=== PATIENT | female | born 1935 | race Caucasian/White ===

== ENCOUNTER 2017-11-01 14:15 | Emergency (ER) | payer OTHER ==
[~2017-11-01] VITALS: Ht 165.1 cm; Wt 59.9 kg
[~2017-11-01 14:15] MED LIST: ASPI325 PO; ASPI81CH PO; ATEN50 PO; ATENOLOL PO; DIPATR PO; GABA300 PO; HYDACE10B PO; Keflex500 MG PO; LISI20 PO; LISINOPRIL PO; NIFE60ER PO; PRAV20 PO; PRAVASTATIN PO; PREG75 PO; Questran4 GM PO; VITAMIN B COMP PO; Zofran Odt4 MG SL; [UNRECOGNIZED DRUG - OTHER] PO
[2017-11-01 14:41] LABS: BASOPHILS ABSOLUTE AUTO 0.06 K/mm3 (0.00-0.23); BASOPHILS PERCENT AUTO 1 % (0-2); EOSINOPHILS ABSOLUTE AUTO 0.09 K/mm3 (0.00-0.68); EOSINOPHILS PERCENT AUTO 1 % (0-6); Hematocrit 39.1 % (33.0-51.0); Hemoglobin 13.5 g/dL (11.5-16.0); IMMATURE GRAN ABSOLUTE AUTO 0.03 K/mm3 (0.00-0.10); IMMATURE GRAN PERCENT AUTO 0 % (0-1); LYMPHOCYTES ABSOLUTE AUTO 1.54 K/mm3 (0.84-5.20); LYMPHOCYTES PERCENT AUTO 15 % (21-46); MONOCYTES ABSOLUTE AUTO 0.75 K/mm3 (0.16-1.47); MONOCYTES PERCENT AUTO 7 % (4-13); Mean Corpuscular HGB 32.9 pg (26.0-34.0); Mean Corpuscular HGB Conc 34.5 g/dL (31.5-36.5); Mean Corpuscular Volume 95 fL (80-100); NEUTROPHILS ABSOLUTE AUTO 7.81 K/mm3 (1.96-9.15); NEUTROPHILS PERCENT AUTO 76 % (41-73); Platelet Count 261 K/mm3 (150-400); RDW Coefficient Variation 13.4 % (11.7-14.2); RDW Standard Deviation 47.5 fL (35.1-46.3); White Blood Cell Count 10.28 K/mm3 (4.00-11.30)
[2017-11-01] MEDS ORDERED: BENZ100A (14:48)
[2017-11-01 15:12] LABS: Source, Urine Clean Catch
[2017-11-01 15:16] LABS: Alanine Aminotransfer (ALT/SGP 23 U/L (12-78); Albumin, Blood 3.4 g/dL (3.4-5.0); Albumin/Globulin Ratio 0.8 (0.8-1.8); Alk Phos 142 U/L (50-136); Anion Gap 8 mmol/L (6-16); Aspartate Aminotrans (AST/SGOT 18 U/L (12-37); Bilirubin, Total 0.7 mg/dL (0.1-1.0); Blood Urea Nitrogen 16 mg/dL (8-24); Bun/Creatinine Ratio 21.3 (12.0-20.0); CO2, Blood 22 mmol/L (21-32); Chloride, Blood 100 mmol/L (98-108); Creatinine, Blood 0.75 mg/dL (0.40-1.00); Glomerular Filtration Rate >60 (60-); Glucose, Blood 100 mg/dL (70-99); Potassium, Blood 4.1 mmol/L (3.5-5.5); Sodium, Blood 130 mmol/L (136-145); Total Protein, Blood 7.4 g/dL (6.4-8.2)
[2017-11-01 15:26] LABS: Appearance, Urine Clear (Clear); Bilirubin, Urine Neg (Neg); Blood, Urine 1+ (Neg); Color, Urine Yellow (P-Yellow); Glucose Qualitative, Urine Neg (Neg); Ketones, Urine Neg (Neg); Leukocyte Esterase, Urine 1+ (Neg); Nitrite, Urine Neg (Neg); Protein, Urine 3+ (Neg); Specific Gravity, Urine 1.015 (1.003-1.022); Urobilinogen, Urine NORM (Normal)
[2017-11-01 15:36] LABS: Bacteria Few /hpf; Red Blood Cells, Urine 0-2 /hpf (0-2); Squamous Epithelial Cells Few /hpf (Few)
== END 2017-11-01 15:50 | disposition home or self-care (01) ==
LOC: ER 14:15
PROVIDERS: Emergency Medicine
DX: K55.9 Vascular disorder of intestine, unspecified (principal); E78.5 Hyperlipidemia, unspecified; I10 Essential (primary) hypertension; F17.210 Nicotine dependence, cigarettes, uncomplicated
CPT/HCPCS: 36415; 80053; 81001; 83690; 85025; 87086; 99283

== ENCOUNTER 2018-09-01 11:40 | Emergency (ER) | payer OTHER ==
[~2018-09-01] VITALS: Ht 165.1 cm; Wt 63.5 kg
[~2018-09-01 11:40] MED LIST changes: +BENZ100A; +MICROZIDE12.5 M1 PO; +Vitamin B Comple1 EA PO
[2018-09-01 12:49] LABS: Hematocrit 40.5 % (33.0-51.0); Hemoglobin 13.7 g/dL (11.5-16.0); Mean Corpuscular HGB 32.5 pg (26.0-34.0); Mean Corpuscular HGB Conc 33.8 g/dL (31.5-36.5); Mean Corpuscular Volume 96 fL (80-100); Mean Platelet Volume 10.7 fL (9.1-12.4); Platelet Count 185 K/mm3 (150-400); RDW Coefficient Variation 12.6 % (11.7-14.2); RDW Standard Deviation 45.1 fL (35.1-46.3); Red Blood Cell Count 4.22 M/mm3 (3.80-5.20); White Blood Cell Count 5.35 K/mm3 (4.00-11.30)
[2018-09-01 13:11] LABS: Alanine Aminotransfer (ALT/SGP 30 U/L (12-78); Albumin, Blood 3.5 g/dL (3.4-5.0); Albumin/Globulin Ratio 0.9 (0.8-1.8); Alk Phos 71 U/L (50-136); Anion Gap 11 mmol/L (6-16); Aspartate Aminotrans (AST/SGOT 29 U/L (12-37); Bilirubin, Total 0.4 mg/dL (0.1-1.0); Blood Urea Nitrogen 9 mg/dL (8-24); Bun/Creatinine Ratio 14.4 (12.0-20.0); CO2, Blood 23 mmol/L (21-32); Calcium, Blood 8.4 mg/dL (8.5-10.1); Chloride, Blood 98 mmol/L (98-108); Creatinine, Blood 0.63 mg/dL (0.40-1.00); Globulin, Blood 3.8 g/dL (2.2-4.0); Glomerular Filtration Rate >60 (60-); Glucose, Blood 125 mg/dL (70-99); Potassium, Blood 3.3 mmol/L (3.5-5.5); Sodium, Blood 132 mmol/L (136-145); Total Protein, Blood 7.3 g/dL (6.4-8.2)
[2018-09-01 13:36] LABS: BAND PERCENT MAN 1 % (0-8); BASOPHILS PERCENT MAN 0 % (0-2); EOSINOPHILS PERCENT MAN 0 % (0-6); LYMPHOCYTES % ATYPICAL MANUAL 2 % (0-0); LYMPHOCYTES ABSOLUTE MAN 0.64 K/mm3 (0.84-5.20); LYMPHOCYTES PERCENT MAN 10 % (21-46); MONOCYTES ABSOLUTE MAN 0.42 K/mm3 (0.16-1.47); MONOCYTES PERCENT MAN 8 % (4-13); NEUTROPHILS ABSOLUTE MAN 4.28 K/mm3 (1.96-9.15); SEG NEUTROPHILS PERCENT MAN 79 % (41-73); TOTAL CELLS COUNTED 100
[2018-09-01] MEDS ORDERED: ALBU90OI61 INH (13:56)
== END 2018-09-01 14:50 | disposition home or self-care (01) ==
LOC: ER 11:40
PROVIDERS: Physician Assistant
DX: J11.1 Influenza due to unidentified influenza virus with other respiratory manifestations (principal); I10 Essential (primary) hypertension; E78.5 Hyperlipidemia, unspecified; F17.210 Nicotine dependence, cigarettes, uncomplicated; Z79.899 Other long term (current) drug therapy
CPT/HCPCS: 36415; 71046; 80053; 84145; 85025; 93005; 93010; 99284-25

== ENCOUNTER → 2020-09-27 | Outpatient (CLI) | payer OTHER ==
[~2020-09-27] MED LIST changes: +ALBU90OI61 INH
[2020-10-01 14:10] LABS: A/G RATIO 1.2 (0.7-1.7); ALBUMIN 3.7 g/dL (2.9-4.4); ALPHA-1-GLOBULIN 0.3 g/dL (0.0-0.4); ALPHA-2-GLOBULIN 0.8 g/dL (0.4-1.0); GLOBULIN, TOTAL 3.1 g/dL (2.2-3.9); M-SPIKE Not Observed g/dL (Not Observed); PROTEIN, TOTAL, SERUM 6.8 g/dL (6.0-8.5)
== END | disposition home or self-care (01) ==
LOC: PLD 15:20 → LAB SHORT 15:20
PROVIDERS: Internal Medicine Hematology & Oncology
DX: D47.2 Monoclonal gammopathy (principal)
CPT/HCPCS: 84165

== ENCOUNTER → 2020-11-23 | Outpatient (CLI) | payer OTHER | END | disposition home or self-care (01) | LOC: LAB SHORT 12:15 → LAB 12:15 | DX: N39.0 Urinary tract infection, site not specified (principal) | CPT/HCPCS: 87077; 87086; 87186 ==

== ENCOUNTER → 2020-11-29 | Outpatient (CLI) | payer OTHER | END | disposition home or self-care (01) | LOC: LAB SHORT 18:39 → LAB 18:39 | DX: T23.221A Burn of second degree of single right finger (nail) except thumb, initial encounter (principal) | CPT/HCPCS: 87070; 87075; 87076; 87106; 87185; 87205 ==

== ENCOUNTER → 2020-12-24 | Outpatient (CLI) | payer OTHER | END | disposition home or self-care (01) | LOC: LAB 19:13 → LAB SHORT 19:13 | DX: L02.213 Cutaneous abscess of chest wall (principal) | CPT/HCPCS: 87070; 87205 ==

== ENCOUNTER → 2021-02-18 | Outpatient (CLI) | payer OTHER | END | disposition home or self-care (01) | LOC: LAB 12:05 → LAB SHORT 12:05 | DX: N39.0 Urinary tract infection, site not specified (principal) | CPT/HCPCS: 87077; 87086; 87186 ==

== ENCOUNTER → 2022-04-24 | Outpatient (CLI) | payer OTHER | LOC: LAB SHORT 15:10 → LAB 15:10 | DX: R21 Rash and other nonspecific skin eruption (principal) | CPT/HCPCS: 87070; 87077; 87147; 87186; 87205 ==

== ENCOUNTER 2023-06-19 22:34 | Emergency (ER) | payer OTHER ==
[~2023-06-19] VITALS: Ht 165.1 cm; Wt 59.9 kg
[~2023-06-19 22:34] MED LIST changes: +CEPHALEXIN500 M1 PO; +Zithromax250 MG PO
[2023-06-19 22:38] VITALS: BP 132/62
== END 2023-06-20 00:05 | disposition home or self-care (01) ==
LOC: ER 22:34
DX: S82.841A Displaced bimalleolar fracture of right lower leg, initial encounter for closed fracture (principal); I10 Essential (primary) hypertension; E78.5 Hyperlipidemia, unspecified; F17.210 Nicotine dependence, cigarettes, uncomplicated; Z79.82 Long term (current) use of aspirin; Z79.899 Other long term (current) drug therapy; Z88.1 Allergy status to other antibiotic agents; Z88.2 Allergy status to sulfonamides; X58.XXXA Exposure to other specified factors, initial encounter
CPT/HCPCS: 29515; 73610; 99283-25

== ENCOUNTER 2023-06-30 13:33 | Day surgery (SDC) | payer OTHER ==
[~2023-06-30] VITALS: Ht 165.1 cm; Wt 58.5 kg
[2023-06-30] MEDS ORDERED: Acetaminophen650 M1 (14:13)
--- NOTE | 2023-06-30 15:29 | NUR ---
06/30/23 1529 Faiza Azevedo TIME OUT DONE AT BEDSIDE AT [address] ARREGUIN. PT PLACED ON 3L O2 VIA NC. DR ARREGUIN THEN PERFORMED NERVE BLOCK. PT TOLERATED PROCEDURE WELL.
[2023-06-30 17:08] VITALS: BP 158/77
--- NOTE | 2023-06-30 17:22 | NUR ---
06/30/23 1722 Rebecca Alvarez IV REMOVED WITH CANNULA INTACT. PT TOLERATED WELL.
== END 2023-06-30 17:30 | disposition home or self-care (01) ==
LOC: ORSCSDS 13:33
PROVIDERS: Podiatrist Foot & Ankle Surgery
PROC: 0QSG04Z Reposition Right Tibia with Internal Fixation Device, Open Approach (ICD-10-PCS; principal; 2023-06-30 15:00)
PROC: 0QSJ04Z Reposition Right Fibula with Internal Fixation Device, Open Approach (ICD-10-PCS; principal; 2023-06-30 15:00)
DX: S82.841A Displaced bimalleolar fracture of right lower leg, initial encounter for closed fracture (principal); I10 Essential (primary) hypertension; Z87.891 Personal history of nicotine dependence; Z79.899 Other long term (current) drug therapy; Z79.82 Long term (current) use of aspirin
CPT/HCPCS: A9270; C1713; J0171; J0690; J1100; J2001; J2250; J2371; J2405; J2704; J2795; J3010; J7120

== ENCOUNTER 2023-10-09 22:10 | Inpatient (IN) | payer OTHER ==
[~2023-10-09] VITALS: Ht 165.1 cm; Wt 52.2 kg
[~2023-10-09 22:10] MED LIST changes: +ALBU2.5V5 NEB; +ALBU90OI INH; +AMOCLA875 PO; +AZIT250 PO; +Acetaminophen650 M1; +GUAI600T33 PO; +HYDROCODONE-AC1 EA19 PO; +IPRAT-ALBUT 0.5-3 ML INH; +LACT PO; +MELATONIN5 M1 PO; +PIPERACIL TAZO IV; +POTCHL20ER PO; +PRED20 PO; +Prednisone10 MG PO; +TRAZ50 PO; +VANCOMYCIN HCL1 G1 IV; +Ventolin5 MG/1 ML INH
[2023-10-09 23:26] LABS: BASOPHILS ABSOLUTE AUTO 0.06 K/mm3 (0.00-0.23); BASOPHILS PERCENT AUTO 1 % (0-2); EOSINOPHILS ABSOLUTE AUTO 0.43 K/mm3 (0.00-0.68); EOSINOPHILS PERCENT AUTO 6 % (0-6); Hematocrit 27.4 % (33.0-51.0); Hemoglobin 9.5 g/dL (11.5-16.0); IMMATURE GRAN ABSOLUTE AUTO 0.02 K/mm3 (0.00-0.10); IMMATURE GRAN PERCENT AUTO 0 % (0-1); LYMPHOCYTES ABSOLUTE AUTO 0.44 K/mm3 (0.84-5.20); LYMPHOCYTES PERCENT AUTO 6 % (21-46); MONOCYTES ABSOLUTE AUTO 0.85 K/mm3 (0.16-1.47); MONOCYTES PERCENT AUTO 11 % (4-13); Mean Corpuscular HGB 30.8 pg (26.0-34.0); Mean Corpuscular HGB Conc 34.7 g/dL (31.5-36.5); Mean Corpuscular Volume 89 fL (80-100); Mean Platelet Volume 10.3 fL (9.1-12.4); NEUTROPHILS ABSOLUTE AUTO 5.75 K/mm3 (1.96-9.15); NEUTROPHILS PERCENT AUTO 76 % (41-73); Platelet Count 365 K/mm3 (150-400); RDW Coefficient Variation 16.9 % (11.7-14.2); RDW Standard Deviation 53.2 fL (35.1-46.3); Red Blood Cell Count 3.08 M/mm3 (3.80-5.20); White Blood Cell Count 7.55 K/mm3 (4.00-11.30)
[2023-10-09 23:39] LABS: Albumin, Blood 1.8 g/dL (3.4-5.0); Albumin/Globulin Ratio 0.5 (0.8-1.8); Bilirubin, Total 0.5 mg/dL (0.1-1.0); Bun/Creatinine Ratio 11.8 (12.0-20.0); Calcium, Blood 8.5 mg/dL (8.5-10.1); Creatinine, Blood 0.76 mg/dL (0.40-1.00); Globulin, Blood 3.9 g/dL (2.2-4.0); Potassium, Blood 4.1 mmol/L (3.5-5.5); Total Protein, Blood 5.7 g/dL (6.4-8.2)
[2023-10-10] VITALS (8 sets, daily range): BP systolic 122–142; BP diastolic 57–74
[2023-10-10] MEDS ORDERED: Cefepime HCl 1,000 MG in NS 100 ML IV ONE (00:20)
[2023-10-10] MEDS ORDERED: Vancomycin HCL 1,250 MG in NS 250 ML IV SCH (00:29)
[2023-10-10] MEDS ORDERED: Ondansetron HCl 2 MG / ML 2ML Vial IV PRN (00:50)
[2023-10-10] MEDS ORDERED: Acetaminophen 325 MG TABLET PO PRN (00:50)
[2023-10-10 01:07] LABS: Influenza A, PCR NEGATIVE (NEGATIVE); Influenza B, PCR NEGATIVE (NEGATIVE); Resp Syncytial Virus, PCR NEGATIVE (NEGATIVE); SARS-Cov-2 (COVID-19) PCR, MMC NEGATIVE (NEGATIVE)
[2023-10-10 03:39] LABS: BASOPHILS ABSOLUTE AUTO 0.07 K/mm3 (0.00-0.23); BASOPHILS PERCENT AUTO 1 % (0-2); EOSINOPHILS ABSOLUTE AUTO 0.37 K/mm3 (0.00-0.68); EOSINOPHILS PERCENT AUTO 5 % (0-6); Hematocrit 28.7 % (33.0-51.0); Hemoglobin 9.3 g/dL (11.5-16.0); IMMATURE GRAN ABSOLUTE AUTO 0.04 K/mm3 (0.00-0.10); IMMATURE GRAN PERCENT AUTO 1 % (0-1); LYMPHOCYTES PERCENT AUTO 7 % (21-46); MONOCYTES ABSOLUTE AUTO 0.69 K/mm3 (0.16-1.47); MONOCYTES PERCENT AUTO 10 % (4-13); Mean Corpuscular HGB 29.3 pg (26.0-34.0); Mean Corpuscular HGB Conc 32.4 g/dL (31.5-36.5); Mean Corpuscular Volume 91 fL (80-100); Mean Platelet Volume 9.7 fL (9.1-12.4); NEUTROPHILS ABSOLUTE AUTO 5.13 K/mm3 (1.96-9.15); NEUTROPHILS PERCENT AUTO 76 % (41-73); Platelet Count 289 K/mm3 (150-400); RDW Coefficient Variation 17.1 % (11.7-14.2); RDW Standard Deviation 55.1 fL (35.1-46.3); Red Blood Cell Count 3.17 M/mm3 (3.80-5.20)
[2023-10-10 04:47] LABS: Albumin, Blood 1.8 g/dL (3.4-5.0); Albumin/Globulin Ratio 0.5 (0.8-1.8); Bilirubin, Total 0.5 mg/dL (0.1-1.0); Bun/Creatinine Ratio 11.8 (12.0-20.0); Calcium, Blood 8.2 mg/dL (8.5-10.1); Creatinine, Blood 0.76 mg/dL (0.40-1.00); Globulin, Blood 3.8 g/dL (2.2-4.0); Magnesium, Blood 1.9 mg/dL (1.6-2.4); Potassium, Blood 4.2 mmol/L (3.5-5.5); Total Protein, Blood 5.6 g/dL (6.4-8.2)
[2023-10-10] MEDS ORDERED: Furosemide 10 MG / ML 2ML Vial IV ONE (05:55)
--- NOTE | 2023-10-10 06:53 | NUR ---
SHIFT SUMMARY PATIENT ARRIVED TO PCU 07 VIA STRETCHER AT 0137, SLIDE TRANSFER COMPLETED. PATIENT ALERT AND ORIENTED X4. SHE IS ABLE TO GET UP TO THE BEDSIDE COMMODE WITH 1 ASSIST. PATIENT ARRIVED TO PCU ON 9 LITERS O2 VIA OXYMIZER, WAS ABLE TO TITRATE OT 4 LITERS O2. PATIENT STARTED DESATING AND REQUIRED INCREASED AMOUNTS OF OXYGEN AGAIN, PATIENT'S LUNGS HAD COARSE CRACKLES THROUGHOUT AT THIS POINT THAT WERE NOT PRESENT UPON ADMIT. CONTACTED DR CRAVEN TO NOTIFY HIM AND HE ORDERED A ONE TIME DOSE OF 20 MG IV LASIX. IT WAS ALSO NOTED THAT THE PATIENT OXYGENATES BEST WHEN LYING ON HER LEFT SIDE. BLOOD PRESSURE STABLE, SINUS RHYTHM ON TELE. WILL CONTINUE TO MONITOR. CALL LIGHT WITHIN REACH.
[2023-10-10] MEDS ORDERED: ACET325 PO (07:16)
[2023-10-10] MEDS ORDERED: Cefepime HCl 1,000 MG in NS 100 ML IV SCH (08:00)
[2023-10-10] MEDS ORDERED: Lactobacil 2-S.Thermo-Bifido 1 1 Cap PO SCH (09:00)
[2023-10-10] MEDS ORDERED: Enoxaparin 40 MG/0.4 ML SYR SC SCH (09:00)
--- NOTE | 2023-10-10 11:09 | NUR ---
Per pt's H&P, she was struggling to understand "Code Status" conversation. Placed call to pt's daughter Jacqui, who states her mom had "DNR" code status, as she was wearing a DNR bracelet during her last hospitalization, and reports she and the patient discussed it at the time. She recommended taking a new POLST and discussing with the patient, as the patient has filled one out in the recent past as DNR, but she isn't sure where the POLST ended up. Will review with the patient today.
--- NOTE | 2023-10-10 12:55 | NUR ---
Pt changed code status today to DNR, and discussed with the physician she does not want heroic measures of any kind, no further hospitalizations. New POLST filled out, sent to medical records and POLST registry, original left on chart.
--- NOTE | 2023-10-10 18:24 | NUR ---
PT'S O2 NEEDS HAVE WAXED AND WANED T/O THE DAY. SHE IS CURRENTLY ON 7L OXYGEN WITH OXYMIZER. SHE IS ALERT, ANSWERING QUESTIONS APPROPRIATELY. SHE HAS A FLUTTER VALVE AND ICS THAT SHE USES FREQUENTLY. SHE HAS BOUTS OF ANXIETY AND NEEDS REASSURANCE. FAMILY WAS UPDATED, THEIR CONCERNS WERE ADDRESSED. SHE IS ON A PUREED DIET, SHE ATE DINNER WELL WITH ASSITANCE. OTHERWISE SHE HAS BEEN RESTING WELL WATCHING TV T/O THE DAY.
[2023-10-10] MEDS ORDERED: Ipratropium/Albuterol SulF 2.5-0.5MG/3 ML Amp INH PRN (20:15)
--- NOTE | 2023-10-10 20:59 | NUR ---
ASSUMPTION OF CARE PT RESTING IN BED, ALERT AND ORIENTED X4. PT ANSWERS QUESTIONS APPROPRIATELY, FOLLOWS DIRECTION AND IS ABLE TO MAKE NEEDS KNOWN. PT WEAK BUT MOVES ALL EXTREMITIES EQUALLY BILATERALLY. HR 90-100'S SINUS, MAP >65. PT ON 8L NC, OXYGEN SATURATION >95%, PT DENIES SOB. ABDOMEN SOFT NONTENDER, BOWEL TONES ACTIVE IN ALL FOUR QUADRANTS. PIV IN PLACE TO LEFT WRIST SL, POWERGLIDE IN PLACE TO CHELSIE SL. BED IN LOWEST POSITION, CALL LIGHT WITHIN REACH, CARE CONTINUES.
[2023-10-10] MEDS ORDERED: Melatonin 5 MG Tablet PO PRN (21:25)
[2023-10-11 03:48] VITALS: BP 127/63
--- NOTE | 2023-10-11 05:05 | NUR ---
END OF SHIFT NOTE: THIS RN RESUMED CARE OF PT AT APPROX 0130. NO ACUTE CHANGES SINCE RESUMPTION OF CARE. PT RESTING COMFORTABLY WITH STABLE VITAL SIGNS. PT DENIES NEEDS AND PAIN. SEE PREVIOUS NOTES AND SHIFT ASSESSMENT FOR DETAILS. WILL CONTINUE TO MONITOR AND REPORT TO ONCOMING RN.
[2023-10-11 08:40] VITALS: BP 125/69
[2023-10-11 12:42] VITALS: BP 130/57
[2023-10-11 17:30] VITALS: BP 147/81
--- NOTE | 2023-10-11 18:06 | NUR ---
PT HAS BEEN RESETING WELL IN BED T/O THE DAY. SHE IS ON 6L VIA OXYMIZER THAT SHE IS TOLERATING WELL WITH HUMIDITY. SHE REPORTS SOME DIFFUSE ABD PAIN THIS AM THAT RESOLVED WITH TYLENOL THIS AM. THIS PAIN HAS BEEN CHRONIC FOR SEVERAL MONTHS STARTING AFTER SHE FRACTURED HER ANKLE IN MAY PER HER DAUGHTER. HSE IS ALERT, SHE IS ABLE TO MAKE HER NEEDS KNOWN. SHE HAS BEEN EATING SMALL AMOUNTS OF HER DINNER TRAY. FAMILY WAS IN TODAY, THEY WOULD LIKE PT TO RECIEVE A "FEEDING TUBE" OR "IV VITAMINS" THEY WERE EDUCATED ABOUT THIS, DR MADISON CALLED THEM ALSO TO DISCUSS THESE CONCERNS, HE ALSO DISCUSSED PT'S D/C PLAN WITH THEM. VSS. RICCI.
[2023-10-11 20:00] VITALS: BP 157/94
[2023-10-11 23:58] VITALS: BP 136/86
--- NOTE | 2023-10-12 01:24 | NUR ---
ASSUMPTION OF CARE AFTER RECEIVING REPORT FROM DAY RN, THIS RN ASSUMED CARE AT APPROX 1915. DURING INITIAL ENCOUNTER, PATIENT ALERT, REPORTING DIFFICULTY BREATHING. CONGESTED COUGH NOTED. COARSE CRACKLES AUSCULTATED T/O. RR 25-30. SATs 70s-80s. ON 6L VIA HI FLOW NC. INCREASED TO 10L WITH LITTLE CHANGE. RT CONTACTED. PLACED ON NONREBREATHER AT 8L. RT TO BEDSIDE TO PERFORM BREATHING TREATMENT. SATs 83-88%. PLACED ON AIRVO 30L 86%, SATs 88-95%. BREATHING IMPROVED WITH AIRVO, SETTINGS ADJUSTED TO 30L 50%. PATIENT ALERT AND ORIENTED X4. EXPERIENCES EPISODES OF INCREASED IRRITABILITY, ANXIETY. MANAGING WITH THERAPUETIC DISCUSSION, EDUCATION. TELEMETRY SHOWING SINUS/SINUS TACH 70s-110s. BP STABLE. DENIES CHEST PAIN, PRESSURE. REPOSITIONS HERSELF INDEPENDENTLY IN BED. IS A ONE PERSON ASSIST TO BSC. CALL LIGHT IN REACH.
[2023-10-12 03:35] VITALS: BP 162/79
[2023-10-12 03:57] VITALS: BP 121/78
[2023-10-12 04:21] LABS: BASOPHILS ABSOLUTE AUTO 0.06 K/mm3 (0.00-0.23); BASOPHILS PERCENT AUTO 1 % (0-2); EOSINOPHILS ABSOLUTE AUTO 0.38 K/mm3 (0.00-0.68); EOSINOPHILS PERCENT AUTO 5 % (0-6); Hematocrit 28.8 % (33.0-51.0); Hemoglobin 9.6 g/dL (11.5-16.0); IMMATURE GRAN ABSOLUTE AUTO 0.03 K/mm3 (0.00-0.10); IMMATURE GRAN PERCENT AUTO 0 % (0-1); LYMPHOCYTES ABSOLUTE AUTO 0.73 K/mm3 (0.84-5.20); LYMPHOCYTES PERCENT AUTO 10 % (21-46); MONOCYTES PERCENT AUTO 11 % (4-13); Mean Corpuscular HGB 29.3 pg (26.0-34.0); Mean Corpuscular HGB Conc 33.3 g/dL (31.5-36.5); Mean Corpuscular Volume 88 fL (80-100); Mean Platelet Volume 10.2 fL (9.1-12.4); NEUTROPHILS PERCENT AUTO 72 % (41-73); Platelet Count 392 K/mm3 (150-400); RDW Coefficient Variation 17.4 % (11.7-14.2); RDW Standard Deviation 54.5 fL (35.1-46.3); Red Blood Cell Count 3.28 M/mm3 (3.80-5.20)
[2023-10-12 04:46] LABS: Albumin, Blood 1.9 g/dL (3.4-5.0); Albumin/Globulin Ratio 0.5 (0.8-1.8); Bilirubin, Total 0.5 mg/dL (0.1-1.0); Bun/Creatinine Ratio 18.7 (12.0-20.0); Calcium, Blood 8.6 mg/dL (8.5-10.1); Creatinine, Blood 0.59 mg/dL (0.40-1.00); Globulin, Blood 3.8 g/dL (2.2-4.0); Potassium, Blood 4.1 mmol/L (3.5-5.5); Total Protein, Blood 5.7 g/dL (6.4-8.2)
--- NOTE | 2023-10-12 05:12 | NUR ---
SHIFT SUMMARY NO ACUTE EVENTS SINCE ASSUMPTION OF CARE. PATIENT RESTED QUIETLY OR SLEPT THROUGHOUT. REMAINS ON AIRVO, TITRATED FROM 50% TO 40%. SATs >90%. DOES EXPERIENCE EPISODES OF DESATs, ESPECIALLY WITH MOBILITY. TELEMETRY CURRENTLY SHOWING SINUS 60s. AT TIMES, ESPECIALLY WITH MOBILITY, TELEMETRY SHOWING SINUS TACH 110s. BP STABLE. DENIES CHEST PAIN, PRESSURE. REPOSITIONS HERSELF INDEPENDENTLY IN BED. UP WITH ONE PERSON ASSIST FWW TO BSC. VOIDING. NO BM THIS SHIFT. CALL LIGHT IN REACH. WILL CONTINUE TO MONITOR AND REPORT TO ONCOMING RN.
[2023-10-12 07:11] VITALS: BP 151/74
--- NOTE | 2023-10-12 11:16 | NUR ---
PT WAS INCREASED TO 30L AND 45% WHEN GETTING UP TO THE BATHROOM. SHE REMAINS ON 45% FIO2 WHILE ASLEEP RIGHT NOW. SATS AT 94%
--- NOTE | 2023-10-12 14:35 | NUR ---
Pt has made the decision to discharge home with hospice. She is alert, oriented and able to make her wants and needs known. She remains on airvo for now. Daughters and son are on board with this plan and have agreed to assist patient in her home. Pt chose [facility] hospice. In the meantime, will begin comfort care as requested by patient. Orders received from Dr. Crowe.
--- NOTE | 2023-10-12 15:08 | NUR ---
ASSUMED CARE FROM CROW. RN. PATIENT ON 43% ON 30L VIA AIRVO. PATIENT IS ALERT AND ORIENTED, ABLE TO MAKE NEEDS KNOWN, HOWEVER, DECLINING CHRONIC ISSUES. DOES NOT FEEDING TUBES. EXTREME PAIN WITH EATING. DENIES CHEST PAIN PRESSURE OR SOB. SLIGHTLY HYPERTENSIVE. PALLIATIVE CARE HAS BEEN SPEAKING WITH THE DAUGHTERS AND PATIENT TO [place] SWITCH TO FULL COMFORT VERSUS THE ALLEGED MODIFIED PLAN. PALLIATIVE AND I PRESENT WITH FURTHER DSICUSIION AND PLAN FOR COMFORT CARE. PATIENT HAS BEEN COOPERATIVE AND ABLE TO COMPREHEND THE DECISION AT THIS TIME. NO ACUTE CONCERNS FROM THIS RN.
[2023-10-12] MEDS ORDERED: Morphine Sulfate 20 MG/1ML 1 ML Oral Syringe SL PRN (16:20)
[2023-10-12] MEDS ORDERED: LORazepam 1 MG Tab PO PRN (16:20)
[2023-10-12 16:24] VITALS: BP 142/87
--- NOTE | 2023-10-12 17:16 | NUR ---
1600- PT TRANSFERRED TO MEDICAL FLOOR AFTER RECEIVING REPORT FROM JAMES PEREZ. PT STABLE TO MEDICAL FLOOR, PT'S STATUS CHANGED TO COMFORT CARE SHORTLY AFTER ARRIVING TO MEDICAL FLOOR. PT AT 43% ON 30L-UNCHANGED FROM PCU SETTINGS UPON ARRIVAL.
--- NOTE | 2023-10-12 17:55 | NUR ---
SUMMARY- NO ACUTE EVENTS THIS SHIFT SINCE TRANSFER TO MEDICAL FLOOR. PT DENIES PAIN. X1 TO THE BSC. AAOX4. THIS RN SPEND SEVERAL MINUTES WITH FAMILY (X3 CHILDREN) AND PT TO DISCUSS THE NEW MED ORDERS AND COMFORT CARE ORDERS. MANY EOL/COMFORT CARE QUESTIONS ANSWERED.
--- NOTE | 2023-10-13 07:11 | NUR ---
SHIFT SUMMARY PT SLEPT THROUGH SHIFT AFTER ADMINISTRATION OF MELATONIN. WOKE FOR BRIEF CHANGES. HAD A BLOODY NOSE FROM AIRVO DRYING OUT HER NOSE.
--- NOTE | 2023-10-13 16:44 | NUR ---
Pt's anxiety, pain and SOB are well controlled at this time. She is going to return home with hospice and her adult children. No new questions at this time from family or patient.
--- NOTE | 2023-10-13 18:20 | NUR ---
SUMMARY- PT WAS ANXIOUS AND SOB THIS MORNING-ATIVAN AND ROXANOL HELPED. PT DISORIENTED TO SITUATION TODAY. AAOX3. X1 ASSIST. PT IS ON AIRVO 42% 30L.
--- NOTE | 2023-10-14 04:45 | NUR ---
SHIFT SUMMARY 88 YR F ADMITTED ON 10/10/23, COMFORT CARE. NO ACUTE CHANGES THIS SHIFT. PT HAS SLEPT FOR MOST OF THIS SHIFT BUT DID MOAN A FEW TIMES THROUGHOUT THE NIGHT. SHE WAS DMITRY ROJAS FOR COMFORT WITH GOOD RESULTS. SHE STATED TO THIS NURSE THAT SHE DOES NOT EAT BECAUSE IT MAKES HER STOMACH HURT BUT SHE WILL OCCASIONALLY HAVE JELLO. PLAN IS TO DISCHARGE HOME TODAY ON HOSPICE.
[2023-10-14] MEDS ORDERED: Ativan1 MG PO (08:36)
[2023-10-14] MEDS ORDERED: MORP20L SL (08:37)
[2023-10-14] MEDS ORDERED: Saline Nasal Spray 45 ML PRN (09:45)
--- NOTE | 2023-10-14 12:34 | NUR ---
PT DISCHARGED HOME WITH HOSPICE. TRANSPORTED BY EMS. PACKET INCLUDED. PT ON 4L NC. ABLE TO MAKE NEED KNOWN. DROWSY.
== END 2023-10-14 12:23 | disposition hospice, home (50) | DRG 177 ==
LOC: ER 22:10 → MEDS 10-10 00:46 → PCU 10-10 00:46 → MEDS 10-12 15:53 → ENPENDDIS 10-14 11:46 → MEDS 10-14 12:23
PROVIDERS: Emergency Medicine; Internal Medicine; ADMIT Student in an Organized Health Care Education/Training Program
DX: J85.1 Abscess of lung with pneumonia (principal); E43 Unspecified severe protein-calorie malnutrition; J69.0 Pneumonitis due to inhalation of food and vomit; J96.21 Acute and chronic respiratory failure with hypoxia; J44.0 Chronic obstructive pulmonary disease with (acute) lower respiratory infection; Z68.1 Body mass index [BMI] 19.9 or less, adult; Z51.5 Encounter for palliative care; Z66 Do not resuscitate; E88.09 Other disorders of plasma-protein metabolism, not elsewhere classified; I10 Essential (primary) hypertension; E78.5 Hyperlipidemia, unspecified; M19.90 Unspecified osteoarthritis, unspecified site; M81.0 Age-related osteoporosis without current pathological fracture; I95.9 Hypotension, unspecified; R79.1 Abnormal coagulation profile; G47.00 Insomnia, unspecified; Z79.52 Long term (current) use of systemic steroids; Z79.82 Long term (current) use of aspirin; Z88.1 Allergy status to other antibiotic agents; Z88.2 Allergy status to sulfonamides; Z87.891 Personal history of nicotine dependence
CPT/HCPCS: 0241U; 36415; 71046; 71260; 80053; 82947; 83605; 83735; 83880; 84145; 84484; 85025; 85379; 87040; 87449; 92610; 93005; 93010; 94640; 94664; 94760; 94762; 96365; 99285-25; A9270; J0692; J1940; J2185; J3370; J7050; Q9967